=== PATIENT | female | born 1980 | race Caucasian/White ===

== ENCOUNTER → 2016-08-31 | Outpatient (CLI) | payer OTHER | END | disposition home or self-care (01) | LOC: CFH 12:14 | PROVIDERS: ATTEND Student in an Organized Health Care Education/Training Program | DX: Z34.82 Encounter for supervision of other normal pregnancy, second trimester (principal) | CPT/HCPCS: 36415; 82950; 85025 ==

== ENCOUNTER → 2016-08-31 | Outpatient (CLI) | payer OTHER ==
[2016-08-31 17:44] LABS: ASPARTATE AMINO TRANSFERASE 85 U/L (15-37)
== END | disposition home or self-care (01) ==
LOC: LAB 16:51
PROVIDERS: ATTEND Student in an Organized Health Care Education/Training Program
DX: O09.513 Supervision of elderly primigravida, third trimester (principal); O13.3 Gestational [pregnancy-induced] hypertension without significant proteinuria, third trimester; O36.63X1 Maternal care for excessive fetal growth, third trimester, fetus 1; Z3A.00 Weeks of gestation of pregnancy not specified
CPT/HCPCS: 36415; 82565; 84156; 84450; 84550

== ENCOUNTER 2016-09-03 10:28 | Inpatient (IN) | payer MEDICAID, OTHER ==
[~2016-09-03] VITALS: Ht 154.9 cm; Wt 95.9 kg
[2016-09-03 10:48] VITALS: BP 140/64
[2016-09-03 11:31] LABS: ASPARTATE AMINO TRANSFERASE 67 U/L (15-37); BLOOD UREA NITROGEN 6 mg/dL (7-18)
[2016-09-03] MEDS: LACTATED RINGERS 1,000 ML IV SCH ×6 (12:57→23:28)
[2016-09-03] MEDS ORDERED: SODIUM CITRATE/CITRIC ACID 30 ML UDC PO ONE (13:00)
[2016-09-03] MEDS ORDERED: LACTATED RINGERS 1,000 ML IVBOLUS ONE (13:00)
[2016-09-03] MEDS ORDERED: METOCLOPRAMIDE 5 MG/ML, 2ML IV ONE (13:00)
[2016-09-03] MEDS ORDERED: LACTATED RINGERS 1,000 ML IV SCH (15:28)
[2016-09-03] MEDS: OXYTOCIN 30U/ 0.9% NaCL 500ML 500 ML IV SCH ×3 (15:28→22:39)
[2016-09-03] MEDS ORDERED: ONDANSETRON 2MG/ML, 2ML IV PRN (15:30)
[2016-09-03] MEDS ORDERED: CARBOPROST TROMETHAMINE 250 MCG/ML, 1ML IM PRN (15:30)
[2016-09-03] MEDS ORDERED: CALCIUM CARBONATE 500 MG TAB.CHEW PO PRN (15:30)
[2016-09-03] MEDS ORDERED: IBUPROFEN 600 MG TABLET PO PRN (15:30)
[2016-09-03] MEDS ORDERED: HYDROcodone/APAP 5/325 TABLET PO PRN ×2 (15:30)
[2016-09-03] MEDS ORDERED: MISOPROSTOL 200 MCG TABLET PR PRN (15:30)
[2016-09-03] MEDS ORDERED: NEWBORN KIT ONE (15:57)
[2016-09-03] MEDS ORDERED: SODIUM CITRATE/CITRIC ACID 30 ML UDC ONE (15:57)
[2016-09-03] MEDS ORDERED: METOCLOPRAMIDE 5 MG/ML, 2ML ONE (15:57)
[2016-09-03] MEDS ORDERED: LIDOCAINE/MPF 2%-EPI 1:200K, 20 ML ONE (16:17)
[2016-09-03] MEDS ORDERED: CEFAZOLIN 1,000 MG ONE (16:48)
[2016-09-03] MEDS ORDERED: EPHEDRINE 50 MG/ML, 1ML ONE (16:48)
[2016-09-03] MEDS ORDERED: OXYTOCIN 10 UNITS/ML, 1ML ONE (16:48)
[2016-09-03] MEDS ORDERED: FENTANYL PF 100 MCG/2ML ONE (18:07)
[2016-09-03] MEDS ORDERED: OXYTOCIN 30U/ 0.9% NaCL 500ML 500 ML ONE (18:17)
[2016-09-03] MEDS ORDERED: MORPHINE SULFATE 4 MG/ML, 1ML ONE (19:21)
[2016-09-03] MEDS ORDERED: MORPHINE SULFATE 4 MG/ML, 1ML IVPush PRN (19:30)
[2016-09-03 20:05] VITALS: BP 138/70
[2016-09-03 22:07] VITALS: BP 139/66
[2016-09-03] MEDS: OXYcodone/APAP 5/325MG TABLET PO PRN (22:16)
[2016-09-03 23:31] LABS: BLOOD UREA NITROGEN 5 mg/dL (7-18)
[2016-09-03 23:36] LABS: ASPARTATE AMINO TRANSFERASE 79 U/L (15-37)
[2016-09-03 23:40] VITALS: BP 104/55
[2016-09-04] MEDS: POTASSIUM CHLORIDE 20 MEQ TAB.ER.PRT PO SCH ×3 (00:16→17:23)
[2016-09-04] MEDS: OXYTOCIN 30U/ 0.9% NaCL 500ML 500 ML IV SCH ×5 (01:28→21:28)
[2016-09-04] MEDS: OXYcodone/APAP 5/325MG TABLET PO PRN ×5 (02:00→19:41)
[2016-09-04 04:23] VITALS: BP 134/71
[2016-09-04] MEDS: MORPHINE SULFATE 4 MG/ML, 1ML IVPush PRN ×2 (04:32→08:31)
[2016-09-04] MEDS: LACTATED RINGERS 1,000 ML IV SCH ×3 (07:28→23:28)
[2016-09-04 08:14] VITALS: BP_SYST 125; BP_DIAS 7; BP_DIAS 70
[2016-09-04] MEDS ORDERED: morphine SULFATE 10 MG/ML, 1ML ONE (08:28)
[2016-09-04] MEDS: DOCUSATE 100 MG CAPSULE PO PRN ×2 (08:32→19:41)
[2016-09-04] MEDS: PRENATAL VIT/IRON/FA 1 EACH TABLET PO SCH (08:32)
[2016-09-04 11:26] VITALS: BP 117/75
[2016-09-04 15:08] VITALS: BP 116/71
[2016-09-04] MEDS ORDERED: DIPH,PERTUSS(ACELL),TET VAC/PF NC IM-VACC ONE (19:30)
[2016-09-04] MEDS: SIMETHICONE 80 MG CHEW TAB PO PRN (19:41)
[2016-09-04 20:00] VITALS: BP 122/83
[2016-09-05] MEDS: SIMETHICONE 80 MG CHEW TAB PO PRN ×2 (01:28→19:50)
[2016-09-05] MEDS: OXYcodone/APAP 5/325MG TABLET PO PRN ×5 (01:28→21:35)
[2016-09-05] MEDS: OXYTOCIN 30U/ 0.9% NaCL 500ML 500 ML IV SCH ×3 (04:39→17:28)
[2016-09-05 07:43] VITALS: BP 141/81
[2016-09-05] MEDS: DOCUSATE 100 MG CAPSULE PO PRN ×2 (09:24→21:35)
[2016-09-05] MEDS: PRENATAL VIT/IRON/FA 1 EACH TABLET PO SCH (09:24)
[2016-09-05] MEDS: POTASSIUM CHLORIDE 20 MEQ TAB.ER.PRT PO SCH ×2 (09:24→18:47)
[2016-09-05 10:38] LABS: BLOOD UREA NITROGEN 7 mg/dL (7-18)
[2016-09-05 10:43] LABS: ASPARTATE AMINO TRANSFERASE 132 U/L (15-37)
[2016-09-05 11:55] VITALS: BP 134/76
[2016-09-05 15:54] VITALS: BP 127/70
[2016-09-05 19:50] VITALS: BP 126/75
[2016-09-06] MEDS: OXYTOCIN 30U/ 0.9% NaCL 500ML 500 ML IV SCH ×6 (00:39→23:28)
[2016-09-06] MEDS: OXYcodone/APAP 5/325MG TABLET PO PRN ×2 (03:11→20:30)
[2016-09-06] MEDS: SIMETHICONE 80 MG CHEW TAB PO PRN ×2 (03:11→20:30)
[2016-09-06] MEDS ORDERED: IBUPROFEN 600 MG TABLET ONE (15:25)
[2016-09-06] MEDS: LACTATED RINGERS 1,000 ML IV SCH ×2 (15:28→23:28)
[2016-09-06] MEDS: POTASSIUM CHLORIDE 20 MEQ TAB.ER.PRT PO SCH ×2 (17:00→20:30)
[2016-09-06] MEDS: DOCUSATE 100 MG CAPSULE PO PRN (20:30)
[2016-09-07] MEDS: OXYcodone/APAP 5/325MG TABLET PO PRN (06:20)
[2016-09-07] MEDS: OXYTOCIN 30U/ 0.9% NaCL 500ML 500 ML IV SCH ×3 (06:39→16:39)
[2016-09-07] MEDS: LACTATED RINGERS 1,000 ML IV SCH (07:28)
[2016-09-07] MEDS: POTASSIUM CHLORIDE 20 MEQ TAB.ER.PRT PO SCH ×3 (08:00→18:35)
[2016-09-07] MEDS: DOCUSATE 100 MG CAPSULE PO PRN ×2 (08:30→21:36)
[2016-09-07] MEDS: PRENATAL VIT/IRON/FA 1 EACH TABLET PO SCH ×2 (08:30→09:00)
[2016-09-07 15:38] LABS: ASPARTATE AMINO TRANSFERASE 651 U/L (15-37); BLOOD UREA NITROGEN 9 mg/dL (7-18)
[2016-09-07 15:49] LABS: ACETAMINOPHEN < 2 mcg/mL (10-30)
[2016-09-07 16:24] LABS: PROTIME 9.7 Seconds (9.6-11.5)
[2016-09-07 16:30] VITALS: BP 138/77
[2016-09-07 16:30] LABS: HIV 1&2 ANTIBODY SCREEN Nonreactive (Nonreactive); HIV-1 p24 ANTIGEN Nonreactive (Nonreactive)
[2016-09-07] MEDS: D5%-0.9% NACL 1,000 ML IV SCH (18:35)
[2016-09-07 20:50] VITALS: BP 131/85
[2016-09-07] MEDS: OXYcodone IR 5MG TABLET PO PRN (21:36)
[2016-09-07] MEDS ORDERED: OMNIPAQUE 350 MG/ML, 100ML BOTTLE ONE (22:07)
[2016-09-08 00:40] VITALS: BP 124/80
[2016-09-08] MEDS: D5%-0.9% NACL 1,000 ML IV SCH ×3 (02:58→17:05)
[2016-09-08 04:00] VITALS: BP 129/78
[2016-09-08] MEDS: OXYcodone IR 5MG TABLET PO PRN (04:04)
[2016-09-08 05:16] LABS: ASPARTATE AMINO TRANSFERASE 553 U/L (15-37); BLOOD UREA NITROGEN 7 mg/dL (7-18)
[2016-09-08 07:16] VITALS: BP 126/79
[2016-09-08] MEDS ORDERED: DEXTROSE 10% 1,000 ML IV SCH (08:00)
[2016-09-08] MEDS: DOCUSATE 100 MG CAPSULE PO PRN (08:59)
[2016-09-08] MEDS: POTASSIUM CHLORIDE 20 MEQ TAB.ER.PRT PO SCH ×2 (08:59→17:05)
[2016-09-08] MEDS: PRENATAL VIT/IRON/FA 1 EACH TABLET PO SCH (08:59)
[2016-09-08 12:00] VITALS: BP 127/80
[2016-09-08 12:18] LABS: ASPARTATE AMINO TRANSFERASE 715 U/L (15-37)
[2016-09-08 14:08] LABS: HEPATITIS C VIRUS ANTIBODY Nonreactive (Nonreactive)
[2016-09-08] MEDS ORDERED: CEFTRIAXONE 1,000 MG in DEXTROSE 5% 50 ML IV SCH (14:30)
[2016-09-08] MEDS ORDERED: D5%-0.9% NACL 1,000 ML IV SCH (15:30)
[2016-09-08 15:46] VITALS: BP 136/85
[2016-09-08] MEDS ORDERED: metroNIDAZOLE 500 MG TABLET PO SCH (16:00)
[2016-09-08 19:30] VITALS: BP 142/85
[2016-09-09 01:05] VITALS: BP 132/63
[2016-09-09] MEDS: D5%-0.9% NACL 1,000 ML IV SCH ×3 (01:12→11:28)
[2016-09-09 03:31] VITALS: BP 128/80
[2016-09-09 06:45] VITALS: BP 133/75
[2016-09-09] MEDS: DOCUSATE 100 MG CAPSULE PO PRN (07:33)
[2016-09-09] MEDS: PRENATAL VIT/IRON/FA 1 EACH TABLET PO SCH (07:33)
[2016-09-09] MEDS: POTASSIUM CHLORIDE 20 MEQ TAB.ER.PRT PO SCH (07:33)
[2016-09-09 07:42] LABS: ASPARTATE AMINO TRANSFERASE 442 U/L (15-37); BLOOD UREA NITROGEN 7 mg/dL (7-18)
[2016-09-09] MEDS ORDERED: OXYC-302 PO (11:02)
[2016-09-09] MEDS ORDERED: IBUP-1222 PO (11:03)
[2016-09-09] MEDS ORDERED: DOCU-30 PO (11:03)
[2016-09-09 12:00] VITALS: BP 135/86
[2016-09-09 12:33] LABS: ANA SCREEN POSITIVE (Negative)
== END 2016-09-09 16:25 | disposition home or self-care (01) | DRG 765 ==
LOC: LDOP 10:28 → LDIP 12:39 → 2NW 17:55
PROVIDERS: ADMIT Student in an Organized Health Care Education/Training Program; ATTEND Student in an Organized Health Care Education/Training Program
PROC: 10D00Z1 Extraction of Products of Conception, Low, Open Approach (ICD-10-PCS; principal; 2016-09-03)
PROC: 0UB50ZZ Excision of Right Fallopian Tube, Open Approach (ICD-10-PCS; 2016-09-03)
DX: O14.94 Unspecified pre-eclampsia, complicating childbirth (principal); E43 Unspecified severe protein-calorie malnutrition; O34.211 Maternal care for low transverse scar from previous cesarean delivery; R06.4 Hyperventilation; F41.9 Anxiety disorder, unspecified; O99.344 Other mental disorders complicating childbirth; Z3A.37 37 weeks gestation of pregnancy; Z37.0 Single live birth; Z30.2 Encounter for sterilization; O25.2 Malnutrition in childbirth; E16.2 Hypoglycemia, unspecified; O99.284 Endocrine, nutritional and metabolic diseases complicating childbirth; D64.9 Anemia, unspecified; O99.02 Anemia complicating childbirth; K76.0 Fatty (change of) liver, not elsewhere classified; O26.62 Liver and biliary tract disorders in childbirth; Z68.39 Body mass index [BMI] 39.0-39.9, adult
CPT/HCPCS: 36415; 71275; 76700; 80053; 80074; 80076; 80307; 81001; 82140; 82248; 82306; 82390; 82570; 82962; 83516; 83735; 84100; 84156; 84450; 84460; 84550; 84681; 85025; 85049; 85379; 85384; 85610; 85730; 86038; 86039; 86703; 86850; 86900; 87086; 87106; 87899; 88302; 90715; J0690; J3010; J7042; Q9967; G0435; J2590; J7120